=== PATIENT | female | born 2000 | race African-American/Black ===

== ENCOUNTER 2019-05-20 09:16 | Emergency (ER) | payer OTHER, SELFPAY ==
[2019-05-20 09:22] VITALS: BP 133/81; PULSE 93; RESP 16; TEMP 37.2; O2SAT 100
--- NOTE | 2019-05-20 09:29 | ED.EAR ---
HPI - Ear Problem General Chief complaint: Ear Stated complaint: ear pain Source: patient and RN notes reviewed Mode of arrival: ambulatory Limitations: no limitations History of Present Illness HPI Narrative: The obese patient, non-smoker/nondrinker, returns with ear discomfort. Patient states she was seen last month for swimmer's ear and treated with drops and 3d oral Cipro. She had improvement, bharti of left ear but has now continued discomfort on the right despite attempted drying with Q-tips and topical antibiotic use. No fever, decreased hearing; discussed plan to provide Allan ear brianne, emphasize good hygiene and drying, and refill meds Related Data Home Medications Medication Instructions Recorded Confirmed ibuprofen [Advil] 200 mg PO Q6H PRN 05/20/19 05/20/19 Allergies Allergy/AdvReac Type Severity Reaction Status Date / Time Penicillins Allergy Mild Other Verified 05/20/19 09:27 Review of Systems Review of Systems: Narrative: General/Constitutional: No weight loss,fever Eyes: N0: Redness,discharge Ears/Nose/Throat: No: Epistaxis,ear discharge Respiratory: Denies: Hemoptysis Gastrointestinal: No Vomiting, Bleeding-rectal Skin: No Lumps, eruption Neurologic: No Focal Weakness,Sz Hematologic: Denies: Petechiae/Purpura Psychiatric: No: Suicida ideationl All Other Systems: Reviewed and Negative [facility] Past Medical History Medical History (Updated 05/20/19 @ 09:37 by Jim Aguiar MD) Ear infection Finger fracture Multiple. History of pneumonia Strep throat Surgical History Surgical History (Updated 04/26/19 @ 13:49 by Dashawn Jones) No history of previous surgery Social History Social History (Updated 04/26/19 @ 13:50 by Dashawn Jones) Smoking status: Never smoker Comments At time of signature, agree with nursing past medical, surgical, social and family history. There is no relevant family history pertinent to the presenting complaint Exam Narrative: Exam Narrative: General Appearance: Well appearing, obese/ Well nourished EYE: PERRLA, Conjunctiva clear Ears: Bilateral R>>L EAC with mucopus TM normal Nose: Rhinorrhea, Mucousal erythema Mouth/Throat: MM moist, Uvula midline, Pharyngeal erythema Neck: Supple, No adenopathy Respiratory: No respiratory distress, Breath sounds equal, Clear to auscultation Cardiovascular: RRR, No JVD Musculoskeletal: Non tender, Normal strength Skin: Warm, Dry Neurological: A&O x3, CN II-XII intact Psychiatric: Normal mood, Normal affect Course Vital Signs Vital signs: Vital Signs Temperature 98.9 F 05/20/19 09:22 Pulse Rate 93 05/20/19 09:22 Respiratory Rate 16 05/20/19 09:22 Blood Pressure 133/81 05/20/19 09:22 Pulse Oximetry 100 05/20/19 09:22 Temperature 98.9 F 05/20/19 09:22 Pulse Rate 93 05/20/19 09:22 Respiratory Rate 16 05/20/19 09:22 Blood Pressure 133/81 05/20/19 09:22 Pulse Oximetry 100 05/20/19 09:22 Medical Decision Making Vital Signs Vital Signs: Vital Signs Temperature 98.9 F 05/20/19 09:22 Pulse Rate 93 05/20/19 09:22 Respiratory Rate 16 05/20/19 09:22 Blood Pressure 133/81 05/20/19 09:22 Pulse Oximetry 100 05/20/19 09:22 Temperature 98.9 F 05/20/19 09:22 Pulse Rate 93 05/20/19 09:22 Respiratory Rate 16 05/20/19 09:22 Blood Pressure 133/81 05/20/19 09:22 Pulse Oximetry 100 05/20/19 09:22 Discharge Plan Discharge Clinical Impression: Otitis externa Qualifiers: Otitis externa type: unspecified type Chronicity: acute Laterality: right Qualified Code(s): H60.501 - Unspecified acute noninfective otitis externa, right ear Patient Disposition: Home, Self-Care Condition: Stable Instructions: Antibiotic Form, Otitis Externa (ED) Prescriptions: New ciprofloxacin HCl 250 mg tablet 250 mg PO Q12H Qty: 10 RF: 0 [id number] 3.5-10,000-1 mg/mL-unit/mL-% solution 4 drop RIGHT EAR Q8H Qty: 10 RF: 1 No
== END 2019-05-20 09:40 | disposition home or self-care (01) ==
PROVIDERS: Emergency Provider Emergency Medicine
DX: H60.501 Unspecified acute noninfective otitis externa, right ear (principal)
CPT/HCPCS: 99213; G0463

== ENCOUNTER 2019-10-20 12:05 | Emergency (ER) | payer OTHER, SELFPAY ==
[2019-10-20 12:24] VITALS: BP 156/91; PULSE 93; RESP 15; TEMP 36.8; O2SAT 100
[2019-10-20 13:59] VITALS: BP 129/82; PULSE 72; RESP 14; TEMP 36.8; O2SAT 100
--- NOTE | 2019-10-20 14:21 | ED.EAR ---
HPI - Ear Problem General Chief complaint: Ear Stated complaint: L ear pain Time Seen by Provider: 10/20/19 13:35 Source: patient Mode of arrival: ambulatory Limitations: no limitations History of Present Illness HPI Narrative: This is a 19-year-old female that presents the emergency department for foreign body in the left ear. Reports part of a Q-tip is stuck in her left ear. Reports decreased hearing in the ear. Denies fever, abnormal drainage, or pain. Related Data Home Medications Medication Instructions Recorded Confirmed montelukast mg 10/20/19 Allergies Allergy/AdvReac Type Severity Reaction Status Date / Time Penicillins Allergy Mild Other Verified 05/20/19 09:27 Review of Systems Review of Systems: Narrative: CONSTITUTIONAL: Denies fever ENT: Denies otalgia. All systems reviewed & are unremarkable except as noted in HPI and below PMFSH Past Medical History Medical History (Updated 10/20/19 @ 14:25 by Jennifer Jack PA-C) Ear infection Finger fracture Multiple. History of pneumonia Strep throat Surgical History Surgical History (Updated 04/26/19 @ 13:49 by Dashawn Jones) No history of previous surgery Social History Social History (Updated 04/26/19 @ 13:50 by Dashawn Jones) Smoking status: Never smoker Gender identity (if verbalized by the patient): Female Exam Narrative: Exam Narrative: GENERAL: Well-appearing, well-nourished, and in no acute distress. HEAD: Normocephalic, atraumatic. EYES: EOMI. ENT: Left external auditory canal with medium sized piece of cotton seen EXTREMITIES: Normal range of motion. No edema. SKIN: Warm, dry, no rash. NEURO: No focal deficits. Alert and oriented x3. PSYCH: Normal mood and affect Course Vital Signs Vital signs: Vital Signs Temperature 98.3 F 10/20/19 12:24 Pulse Rate 93 10/20/19 12:24 Respiratory Rate 15 10/20/19 12:24 Blood Pressure 156/91 H 10/20/19 12:24 Pulse Oximetry 100 10/20/19 12:24 Temperature 98.3 F 10/20/19 13:59 Pulse Rate 72 10/20/19 13:59 Respiratory Rate 14 10/20/19 13:59 Blood Pressure 129/82 10/20/19 13:59 Pulse Oximetry 100 10/20/19 13:59 Procedures FB Removal Ear Foreign Body #1: Foreign Body Removal Date: 10/20/19 Foreign Body Removal Time: 14:23 Location: ear canal (L) Foreign Body Suspected: other (Q-tip) TM intact pre-procedure: unable to visualize Foreign Body Removed: yes Foreign Body Removal Technique: forceps Tympanic Membrane Intact Post Procedure: Yes Patient Tolerated Procedure: well Complications: none Medical Decision Making MDM Narrative Medical decision making narrative: Patient presents emergency department for a part of a Q-tip stuck in the left ear. Successfully removed. Exam after removal is without trauma to the external auditory canal, TM is normal. Patient is to follow-up with primary care doctor as needed Vital Signs Vital Signs: Vital Signs Temperature 98.3 F 10/20/19 12:24 Pulse Rate 93 10/20/19 12:24 Respiratory Rate 15 10/20/19 12:24 Blood Pressure 156/91 H 10/20/19 12:24 Pulse Oximetry 100 10/20/19 12:24 Temperature 98.3 F 10/20/19 13:59 Pulse Rate 72 10/20/19 13:59 Respiratory Rate 14 10/20/19 13:59 Blood Pressure 129/82 10/20/19 13:59 Pulse Oximetry 100 10/20/19 13:59 Critical Care Time Critical Care Time Critical Care Time: No Discharge Plan Discharge Clinical Impression: Acute foreign body of left ear Qualifiers: Encounter type: initial encounter Qualified Code(s): T16.2XXA - Foreign body in left ear, initial encounter Patient Disposition: Home, Self-Care Condition: Stable Instructions: Ear Foreign Body (ED) Additional Instructions: Return the emergency department if you experience fever, abnormal drainage from the ear, ear pain, or any other symptoms that are concerning to you Follow-up with your primary car
[2019-10-20 14:53] VITALS: BP 131/73; PULSE 69; RESP 15; TEMP 36.7; O2SAT 100
== END 2019-10-20 14:56 | disposition home or self-care (01) ==
PROVIDERS: Emergency Provider Emergency Medicine; PCP Internal Medicine
DX: T16.2XXA Foreign body in left ear, initial encounter (principal)
CPT/HCPCS: 69200; 99282

== ENCOUNTER 2021-04-15 13:54 | Emergency (ER) | payer OTHER, SELFPAY ==
--- NOTE | 2021-04-15 14:02 | ED.EAR ---
HPI - Ear Problem General Chief complaint: Ear Stated complaint: Ear ache/congestion Time Seen by Provider: 04/15/21 14:03 Source: patient, RN notes reviewed and old records reviewed Mode of arrival: ambulatory Limitations: no limitations History of Present Illness HPI Narrative: 20-year-old female presents to the [facility] with bilateral ear pain since 2018. States that her left nostril started hurting. Has not taken any type of decongestants. Has seen her primary care for the same symptoms in the past and they were going to refer her to an ear nose and throat doctor MD Complaint: ear pain Related Data Allergies Allergy/AdvReac Type Severity Reaction Status Date / Time Penicillins Allergy Mild Other Verified 04/15/21 14:01 Review of Systems Review of Systems: All systems reviewed & are unremarkable except as noted in HPI and below Constitutional: Constitutional: Reports no additional constitutional complaints, Denies chills and Denies fever(s) Eyes: Eyes: Reports no additional eye complaints ENT: Reports as per HPI, Denies change in voice, Denies dental pain, Denies vertigo, Denies dizziness and Denies throat swelling Comments: Ear pain, left nostril Cardiovascular: Cardiovascular: Reports no additional cardiovascular complaints, Denies chest pain and Denies dyspnea Respiratory: Respiratory: Reports no additional respiratory complaints, Denies cough and Denies dyspnea Gastrointestinal: Gastrointestinal: Reports no additional gastrointestinal complaints, Denies abdominal pain, Denies nausea and Denies vomiting Musculoskeletal: Musculoskeletal: Reports no additional musculoskeletal complaints Integumentary/Breasts: Skin/Breast: Reports system reviewed and no additional complaints, except as docu Neurologic: Reports system reviewed and no additional complaints, except as documented, Denies vertigo, Denies dizziness and Denies headache(s) Psychiatric: Psychiatric: Reports no additional psychiatric complaints Allergic/Immunologic: Allergic/Immunologic: Reports no additional allergic/immunologic complaints and Denies throat swelling PMFSH Past Medical History Medical History (Updated 04/15/21 @ 14:23 by Ilda Beltran) Ear infection Finger fracture Multiple. History of pneumonia Strep throat Surgical History Surgical History No history of previous surgery Social History Social History Smoking status: Never smoker Gender identity (if verbalized by the patient): Female Comments At the time of my signature, I reviewed and agree with the nursing past medical, surgical, social, and family history. There is no relevant family history pertinent to the patient complaint. Exam Const: General: healthy appearing and no acute distress Nutritional Appearance: well nourished Orientation/consciousness: patient oriented x3 Limitations: no limitations HENMT: Head: normal to inspection Ears: external ears normal, EAC's normal and TM abnormal bulging bilateral and with fluid behind the TM bilateral General nose exam: Normal external nose present and Normal nasal mucous membranes and turbinates present Face and sinus: normal facial exam Mouth: Yes Normal oral and palatal mucosa present Throat: posterior oropharynx normal, tonsils normal and uvula midline Eyes: Conjunctivae: conjunctivae normal Pupils: Equal, round and reactive pupils present Neck: Neck: normal visual inspection, no lymphadenopathy and no meningeal signs Chest: Chest palpation & inspection: normal inspection of the chest Resp: Effort & Inspection: normal respiratory effort and no use of accessory muscles Auscultation: clear to auscultation bilaterally, no crackles, no rales, no rhonchi and no wheezes Cardio: Rate: regular rate Rhythm: regular rhythm : General: Yes no CVA tenderness Back/Spine/Pelvis: Back: no CVA tenderness Skin: General sk
[2021-04-15 14:05] VITALS: BP 125/84; PULSE 71; RESP 16; TEMP 36.7; O2SAT 100
== END 2021-04-15 14:30 | disposition home or self-care (01) ==
PROVIDERS: Emergency Provider Nurse Practitioner; PCP Internal Medicine
DX: H65.06 Acute serous otitis media, recurrent, bilateral (principal)
CPT/HCPCS: 99213; G0463

== ENCOUNTER 2023-05-07 12:33 | Emergency (ER) | payer OTHER, SELFPAY ==
[2023-05-07 12:50] VITALS: BP 146/94; PULSE 66; RESP 18; TEMP 36.4; O2SAT 100
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
== END 2023-05-07 14:05 | disposition home or self-care (01) ==
PROVIDERS: Emergency Provider Nurse Practitioner Family; PCP Internal Medicine
DX: S16.1XXA Strain of muscle, fascia and tendon at neck level, initial encounter (principal); V49.40XA Driver injured in collision with unspecified motor vehicles in traffic accident, initial encounter
CPT/HCPCS: 99213; G0463

== ENCOUNTER 2023-05-21 14:17 | Outpatient (CLI) | payer OTHER, SELFPAY ==
--- NOTE | ~2023-05-21 | XR_ITS ---
Thoracic spine: Clinical Indication: Back pain AP and lateral views were performed. No fracture is seen. There is normal alignment of the vertebrae. The intervertebral disc spaces appe ar normal. Paravertebral soft tissues appear normal. Impression: No significant abnormalities noted. Reviewed, dictated and finalized at [facility]. 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
--- NOTE | ~2023-05-21 | XR_ITS ---
Cervical Spine: AP, lateral, open-mouth views Clinical History: Pain Findings: The normal lordotic curve is maintained. The vertebral bodies and posterior elements appea r intact. The intervertebral disc spaces are well maintained. Pre-vertebral soft tissues are unremar kable. Impression: No significant abnormality is seen. Reviewed, dictated and finalized at [facility]. [employer] Impression: No significant abnormality is seen.
== END 2023-05-21 14:18 | disposition home or self-care (01) ==
LOC: ANHIMG 14:24
PROVIDERS: PCP Internal Medicine; Visit Provider Internal Medicine
DX: G04.1 Tropical spastic paraplegia (principal)
CPT/HCPCS: 72040; 72072